=== PATIENT | female | born 1965 | race Caucasian/White ===

== ENCOUNTER 2017-11-20 21:34 | Emergency (ER) | END 2017-11-21 02:40 | disposition home or self-care (01) ==

== ENCOUNTER 2019-01-24 17:19 | Emergency (ER) | payer MEDICAID ==
[~2019-01-24] VITALS: Ht 154.9 cm; Wt 67.5 kg
[~2019-01-24 17:19] MED LIST: ACET500C5 PO; CEPH-443 PO; CIPR500T4 PO; IBUP-1542 PO; METR500T PO; NAPR-985 PO
[2019-01-24 17:23] VITALS: Ht 154.9 cm; Wt 67.5 kg
--- NOTE | 2019-01-24 17:31 | EN ---
Date/Time of Note Date/Time of Note DATE: 01/24/19 TIME: 17:29 ER Progress Note ED 3 [id number]-old female with 1 day history of right nontraumatic anterior chest pain and right upper back pain. EKG in triage shows no STEMI. CEM LOPEZ MD January 24, 2019 17:31
[2019-01-24] MEDS ORDERED: KETOROLAC 30 MG INJ IV STA (18:01)
[2019-01-24] MEDS ORDERED: IBUP-1542 PO (20:32)
--- NOTE | 2019-01-24 20:33 | ERD ---
ER Documentation Chief Complaint Chief Complaint rt side chest pain radiating to rt shoulder today HPI Patient is a 53-year-old female with no medical problems who presents with chest pain. The patient said that she has right-sided back pain which radiates to her right chest. It started 2 days ago. Is been constant and sharp. She has no cough no fevers. She has had no treatment as of yet. Upon review of old medical records this is the patient's fifth visit to the ER since 2014. The patient does not currently have a primary doctor. ROS All systems reviewed and are negative except as per history of present illness. Medications Home Meds Active Scripts Ibuprofen* (Motrin*) 600 Mg Tab, 600 MG PO Q6H PRN for PAIN AND OR ELEVATED TEMP, #30 TAB Prov:TOD HERNANDEZ MD 01/24/19 Discontinued Scripts Ciprofloxacin Hcl* (Ciprofloxacin Hcl*) 500 Mg Tablet, 500 MG PO BID for 10 Days, TAB Prov:PINKY QUINTANAC 11/21/17 Metronidazole* (Flagyl*) 500 Mg Tablet, 500 MG PO TID for 10 Days, TAB Prov:PINKY QUINTANAC 11/21/17 Acetaminophen* (Tylophen*) 500 Mg Capsule, 1 CAP PO Q6H PRN for PAIN AND OR ELEVATED TEMP, #30 CAP Prov:PINKY QUINTANA PA-C 11/21/17 Naproxen* (Naprosyn*) 500 Mg Tablet, 500 MG PO BID PRN for PAIN AND/OR INFLAMMATION, #30 TAB Prov:PINKY QUINTANA PA-C 11/21/17 Ibuprofen* (Motrin*) 600 Mg Tab, 600 MG PO Q6, #20 TAB Prov:CHARLY PAINTER PA-C 03/19/15 Cephalexin* (Keflex*) 500 Mg Capsule, 500 MG PO QID for 7 Days, CAP Prov:CHARLY PAINTERC 03/11/15 Allergies Allergies: Coded Allergies: No Known Allergy (Unverified , 01/24/19) PMhx/Soc History of Surgery: Yes (GALL BLADDER, X2) Anesthesia Reaction: No Hx Neurological Disorder: No Hx Respiratory Disorders: No Hx Cardiac Disorders: No Hx Psychiatric Problems: No Hx Miscellaneous Medical Probl: No Hx Alcohol Use: No Hx Substance Use: No Hx Tobacco Use: No Smoking Status: Never smoker FmHx Family History: No coronary disease Physical Exam Vitals Vital Signs Date Temp Pulse Resp B/P (MAP) Pulse Ox O2 O2 Flow FiO2 Time Delivery Rate 01/24/19 94 29 140/85 96 Room Air 18:30 (103) 01/24/19 97.8 86 18 152/79 98 17:23 (103) Physical Exam Const: No acute distress Head: Atraumatic Eyes: Normal Conjunctiva ENT: Normal External Ears, Nose and Mouth. Neck: Full range of motion. No meningismus. Resp: Clear to auscultation bilaterally Cardio: Regular rate and rhythm, no murmurs Abd: Soft, non tender, non distended. Normal bowel sounds Skin: No petechiae or rashes Back: No midline or flank tenderness Ext: No cyanosis, or edema Neur: Awake and alert Psych: Normal Mood and Affect Result Diagram: 01/24/19181501/24/191815 Results 24 hrs Laboratory Tests Test 01/24/19 18:16 White Blood Count 13.9 10^3/ul Red Blood Count 4.85 10^6/ul Hemoglobin 14.4 g/dl Hematocrit 42.9 % Mean Corpuscular Volume 88.5 fl Mean Corpuscular Hemoglobin 29.7 pg Mean Corpuscular Hemoglobin Concent 33.6 g/dl Red Cell Distribution Width 12.3 % Platelet Count 276 10^3/UL Mean Platelet Volume 9.3 fl Immature Granulocytes % 0.500 % Neutrophils % 82.1 % Lymphocytes % 11.1 % Monocytes % 6.0 % Eosinophils % 0.1 % Basophils % 0.2 % Nucleated Red Blood Cells % 0.0 /100WBC Immature Granulocytes # 0.070 10^3/ul Neutrophils # 11.4 10^3/ul Lymphocytes # 1.5 10^3/ul Monocytes # 0.8 10^3/ul Eosinophils # 0.0 10^3/ul Basophils # 0.0 10^3/ul Nucleated Red Blood Cells # 0.0 10^3/ul Sodium Level 140 mmol/L Potassium Level 3.5 mmol/L Chloride Level 101 mmol/L Carbon Dioxide Level 31 mmol/L Anion Gap 8 Blood Urea Nitrogen 13 mg/dl Creatinine 0.95 mg/dl Est Glomerular Filtrat Rate mL/min > 60 mL/min Glucose Level 130 mg/dl Calcium Level 9.7 mg/dl Troponin I < 0.012 ng/ml Current Medications Medications Dose Sig/Rah Start Time Status Last (Trade) Ordered Route PRN Stop Time Admin Dose Reason Admin Ketorolac 30 mg ONCE STAT 01/24/19 DC 01/24/19 Tromethamine IV 18:01 18:43 (Toradol) 01/24/19 18:03 Procedures/MDM EKG read by me: Rate/Rhythm: Regular rate and rhythm at a rate of 99 Intervals: Normal Impression: No evidence of ischemia or arrhythmia Chest x-ray negative per radiology. Patient is a 53-year-old female with no medical problems who presents with right-sided chest pain. Laboratory studies were negative. EKG and chest x-ray were negative. At this point I doubt acute coronary syndrome, pneumonia, pneum othorax, pulmonary embolism, or aortic dissection. The patient will be discharged with a prescription for ibuprofen but will need to follow-up closely with a primary doctor within the next 24 to 48 hours. She will be given a list of local clinics that she does not currently have a primary doctor. Departure Diagnosis: Primary Impression: Chest pain Chest pain type: unspecified Qualified Codes: R07.9 - Chest pain, unspecified Condition: Fair Patient Instructions: Chest Pain, Uncertain Cause [facility]errals[facility] Usted se najera hecho un examen mdico de control que le indica que no est en gregoria condicin que requiera tratamiento urgente en el Departamento de Emergencia. Un estudio ms profundo y el tratamiento de shahid condicin pueden esperar sin ningn riesgo hasta que usted sea atendida/o en el consultorio de shahid mdico o gregoria clnica. Es responsabilidad suya arreglar gregoria david para el seguimiento del russ. MANEJO DE CONDICIONES NO URGENTES EN EL FUTURO 1) Si usted tiene un mdico de atencin primaria: Usted debera llamar a shahid mdico de atencin primaria antes de venir al departamento de emergencia. Despus de las horas de consultorio, shahid doctor o shahid asociado/a est disponible por telfono. El mdico o enfermero de leah en el servicio telefnico puede asesorarle por zita medio para atender el problema, o russ contrario se puede programar gregoria david. 2) Si usted no tiene un mdico de atencin primaria: Llame al mdico o clnica de referencia que aparece abajo carlie las horas de consultorio para hacer gregoria david para que le vean. CLINICAS: [facility] [phone] [facility] [phone] [facility] [phone] [place] [phone] [place] [id number] [phone] [facility]. [phone] [address] Additional Instructions: Llame al doctor MAANA y halina gregoria DAVID PARA DENTRO DE 1-2 HERNANDEZ.Dgale a la secretaria que nosotros le instruimos hacer esta david.Avise o llame si shahid condicin se empeora antes de la david. Regresa aqui si peor o no mejor. TOD HERNANDEZ MD January 24, 2019 20:33
[2019-01-24 20:35] VITALS: BP 126/78; PULSE 93; RESP 24
== END 2019-01-24 20:45 | disposition home or self-care (01) ==
LOC: E/R 17:19
DX: R07.9 Chest pain, unspecified (principal)
CPT/HCPCS: 36415; 71045; 80048; 84484; 85025; 93005; 96374; J1885; Z7502

== ENCOUNTER 2019-01-26 09:43 | Emergency (ER) | payer MEDICAID ==
[~2019-01-26] VITALS: Ht 152.4 cm; Wt 65.6 kg
[~2019-01-26 09:43] MED LIST changes: -ACET500C5 PO; -CEPH-443 PO; -CIPR500T4 PO; -METR500T PO; -NAPR-985 PO
[2019-01-26 09:52] VITALS: Ht 152.4 cm; Wt 65.6 kg
[2019-01-26] MEDS ORDERED: KETOROLAC 30 MG INJ IM STA (10:20)
[2019-01-26] MEDS ORDERED: LORA-441 PO (10:21)
--- NOTE | 2019-01-26 10:29 | ERD ---
ER Documentation Chief Complaint Chief Complaint c/o right upper back pain radiating to abd, right arm numbness, dizzy HPI This is a 53-year-old woman with no significant past medical history presenting with right-sided back pain that radiates to the right chest that began about 4 to 5 days ago, she states that sharp and constant, daily she is also had mild headache as well. This is her third visit for the symptoms in the last 4 days. She was worked up about 2 days ago and labs and x-rays were unremarkable. She was discharged with ibuprofen, she states she has been using 1 daily without relief. Her daughter who is at the bedside states in fact she does have a history of anxiety and with prior anxiety episodes she has had similar chest pain and shortness of breath. Patient states she feels anxious today and also f eels that her chest pain or shortness of breath is caused by the anxiety. She denies suicidal homicidal ideation, no cough, no calf or leg swelling, no headache or blurry vision, no vomiting or diarrhea. ROS All systems reviewed and are negative except as per history of present illness. Medications Home Meds Active Scripts Lorazepam* (Ativan*) 0.5 Mg Tablet, 0.5 MG PO Q8H PRN for ANXIETY, #10 TAB Prov:TOD LORA MD 01/26/19 Ibuprofen* (Motrin*) 600 Mg Tab, 600 MG PO Q6H PRN for PAIN AND OR ELEVATED TEMP, #30 TAB Prov:TOD HERNANDEZ MD 01/24/19 Discontinued Scripts Ciprofloxacin Hcl* (Ciprofloxacin Hcl*) 500 Mg Tablet, 500 MG PO BID for 10 Days, TAB Prov:PINKY QUINTANA PA-C 11/21/17 Metronidazole* (Flagyl*) 500 Mg Tablet, 500 MG PO TID for 10 Days, TAB Prov:PINKY QUINTANA PA-C 11/21/17 Acetaminophen* (Tylophen*) 500 Mg Capsule, 1 CAP PO Q6H PRN for PAIN AND OR ELEVATED TEMP, #30 CAP Prov:PINKY QUINTANA PA-C 11/21/17 Naproxen* (Naprosyn*) 500 Mg Tablet, 500 MG PO BID PRN for PAIN AND/OR INFLAMMATION, #30 TAB Prov:PINKY QUINTANA PA-C 11/21/17 Ibuprofen* (Motrin*) 600 Mg Tab, 600 MG PO Q6, #20 TAB Prov:CHARLY PAINTER PA-C 03/19/15 Cephalexin* (Keflex*) 500 Mg Capsule, 500 MG PO QID for 7 Days, CAP Prov:CHARLY PAINTER PA-C 03/11/15 Allergies Allergies: Coded Allergies: No Known Allergy (Unverified , 01/26/19) PMhx/Soc History of Surgery: Yes (GALL BLADDER, X2) Anesthesia Reaction: No Hx Neurological Disorder: No Hx Respiratory Disorders: No Hx Cardiac Disorders: No Hx Psychiatric Problems: No Hx Miscellaneous Medical Probl: No Hx Alcohol Use: No Hx Substance Use: No Hx Tobacco Use: No Smoking Status: Never smoker FmHx Family History: No diabetes Physical Exam Vitals Vital Signs Date Temp Pulse Resp B/P (MAP) Pulse Ox O2 O2 Flow FiO2 Time Delivery Rate 01/26/19 99.4 88 20 161/74 97 09:52 (103) Physical Exam GENERAL: Well-developed, well-nourished, well-hydrated, appears anxious, afebrile HEENT: Moist mucous membranes, pink conjunctiva, no cervical spine tenderness or step-off deformities, no goiter, no jaundice or icterus, extraocular movements intact without pain. No submandibular induration, and no pharyngeal erythema NEURO: Alert and oriented 3, cranial nerves II through XII intact bilaterally, pupils equal round reactive to light, no focal deficits or facial asymmetry, sensation intact distally Strength 5/5 in upper and lower extremities bilaterally CARDIAC: Regular rate and rhythm, no murmurs rubs or gallops LUNGS: Clear bilaterally no wheezing crackles or stridor EXTREMITIES: No clubbing cyanosis or edema, calves are bilaterally symmetrical, no Homans sign, no popliteal cord sign. Distal pulses equal and bilateral PSYCH: Anxious appearing Results 24 hrs Current Medications Medications Dose Sig/Rah Start Time Status Last (Trade) Ordered Route PRN Stop Time Admin Dose Reason Admin Ketorolac 30 mg ONCE STAT 01/26/19 DC Tromethamine IM 10:20 (Toradol) 01/26/19 10:21 Lorazepam 0.5 mg ONCE ONCE 01/26/19 (Ativan) PO 10:30 01/26/19 10:31 Procedures/MDM I administered Toradol 30 mg IM x1 and lorazepam 0.5 mg p.o. x1. EKG performed, read by me revealed a normal sinus rhythm at 83 bpm, normal axis, narrow QRS complex, no concerning ST elevations or depressions noted I reviewed patient's recent medical work-up which was unremarkable. Her symptoms in fact did improve after above therapy and she looks well, vital signs are normal and blood pressure is within normal limits, she will be discharged for continued outpatient management. Differential diagnoses considered, included but not limited to acute coronary syndrome, pulmonary embolism, aortic dissection, abdominal aortic aneurysm, sepsis, stroke, meningitis, encephalitis, pneumonia, appendicitis, cholecystitis, bowel obstruction, pyelonephritis, nephrolithiasis, cystitis, as well as metabolic, hematologic, and electrolyte abnormalities. As well as abscess, cellulitis, fractures, and dislocations. Patient feels much better at this time, and vital signs are normal, symptoms have improved. I did give strict instructions to return to the ED if symptoms continue or worsen, patient will otherwise follow-up with primary care physician. Patient understood instructions and agreed to plan. Disclaimer: Inadvertent spelling and grammatical errors are likely due to EHR/dictation software use and do not reflect on the overall quality of patient care. Also, please note that the electronic time recorded on this note does not necessarily reflect the actual time of the patient encounter. Departure Diagnosis: Primary Impression: Headache Headache type: tension-type Headache chronicity pattern: acute headache Intractability: not intractable Qualified Codes: G44.209 - Tension-type headache, unspecified, not intractable Additional Impressions: Chest pain Chest pain type: unspecified Qualified Codes: R07.9 - Chest pain, unspecified Acute anxiety Condition: Good Patient Instructions: Anxiety Reaction TOD LORA MD January 26, 2019 10:29
[2019-01-26] MEDS ORDERED: LORAZEPAM 0.5 MG TAB PO ONE (10:30)
[2019-01-26 10:36] VITALS: BP 132/75; PULSE 85; RESP 17
== END 2019-01-26 10:37 | disposition home or self-care (01) ==
LOC: E/R 09:43
DX: G44.209 Tension-type headache, unspecified, not intractable (principal); R07.9 Chest pain, unspecified; F41.9 Anxiety disorder, unspecified
CPT/HCPCS: 93005; 96372; J1885; Z7502; Z7610